=== PATIENT | male | born 1955 | race Caucasian/White ===

== ENCOUNTER → 2023-08-18 15:10 | Outpatient (REF) | payer MEDICARE, BC, SELFPAY | LOC: RAD 15:10 | PROVIDERS: ATTENDING PHYSICIAN Nurse Practitioner Family | DX: M79.661 Pain in right lower leg (principal) | CPT/HCPCS: 93971 ==

== ENCOUNTER → 2024-11-22 08:48 | Outpatient (REF) | payer MEDICARE, BC, SELFPAY | LOC: RAD 08:48 | PROVIDERS: ATTENDING PHYSICIAN Family Medicine | DX: Z08 Encounter for follow-up examination after completed treatment for malignant neoplasm (principal); Z85.038 Personal history of other malignant neoplasm of large intestine | CPT/HCPCS: 71260; 74177; Q9967 ==